=== PATIENT | female | born 1960 | race Caucasian/White ===

== ENCOUNTER 2018-10-24 19:13 | Emergency (ER) | payer BC, MEDICARE, OTHER ==
[~2018-10-24] VITALS: Ht 147.3 cm; Wt 43.4 kg
[~2018-10-24 19:13] MED LIST: CARI250T PO; CITA20TA9; ERGO500017 PO; LORA1TAB PO; NATA300V2; OMEP-110 PO; ONDA4TAB10 PO; OXYC-302; OXYC20TA42 PO
[2018-10-24] MEDS ORDERED: ONDANSETRON 2MG/ML, 2ML IVPush ONE (19:30)
[2018-10-24] MEDS ORDERED: MORPHINE SULFATE 4 MG/ML, 1ML IVPush PRN (19:30)
[2018-10-24] MEDS ORDERED: ONDANSETRON 2MG/ML, 2ML ONE (19:35)
[2018-10-24] MEDS ORDERED: MORPHINE SULFATE 4 MG/ML, 1ML ONE (19:35)
[2018-10-24 19:49] LABS: BASOPHILS # (AUTO) 0.04 x10^3/uL (0-0.1); BASOPHILS % (AUTO) 1 % (0-1); EOSINOPHILS # (AUTO) 0.19 x10^3/uL (0-0.4); EOSINOPHILS % (AUTO) 3 % (1-7); LYMPHOCYTES # (AUTO) 2.66 x10^3/uL (1-3.4); LYMPHOCYTES % (AUTO) 41 % (22-44); MD NO; MEAN CORPUSCULAR HEMOGLOBIN 27.6 pg (27.0-34.8); MEAN CORPUSCULAR VOLUME 83.6 fL (80-100); MEAN PLATELET VOLUME 8.8 fL (7.4-10.4); MONOCYTES # (AUTO) 0.55 x10^3/uL (0.2-0.8); MONOCYTES % (AUTO) 9 % (2-9); NEUTROPHILS # (AUTO) 3.04 x10^3/uL (1.8-6.8); NEUTROPHILS % (AUTO) 47 % (42-75); PLATELET COUNT 289 x10^3/uL (130-400); RED CELL DISTRIBUTION WIDTH 14.4 % (9.6-15.2)
[2018-10-24 20:00] LABS: ALANINE AMINOTRANSFERASE 91 U/L (12-78); ALBUMIN 3.5 g/dL (3.4-5.0); ANION GAP 8 mmol/L (5-15); CALCIUM 9.5 mg/dL (8.5-10.1); CHLORIDE 105 mmol/L (98-107); CREATININE 0.68 mg/dL (0.55-1.02)
[2018-10-24 20:04] LABS: ALKALINE PHOSPHATASE 152 U/L (45-117); BILIRUBIN,TOTAL 0.3 mg/dL (0.2-1.0); TOTAL PROTEIN 7.1 g/dL (6.4-8.2); TROPONIN I < 0.015 ng/mL (0.000-0.045)
[2018-10-24 20:52] LABS: CULTURE INDICATED? NO; MICROSCOPIC NOT IND
[2018-10-24 21:29] VITALS: BP 126/98
== END 2018-10-24 21:32 | disposition home or self-care (01) ==
LOC: ED 20:50
DX: R10.84 Generalized abdominal pain (principal); R19.7 Diarrhea, unspecified; B19.10 Unspecified viral hepatitis B without hepatic coma
CPT/HCPCS: 36415; 76700; 80053; 81003; 83690; 84484; 85025; 93005; 96374; 96375; 99284; J2405

== ENCOUNTER 2019-03-25 20:50 | Emergency (ER) | payer MEDICARE ==
[~2019-03-25] VITALS: Ht 147.3 cm; Wt 41.7 kg
--- NOTE | 2019-03-25 22:40 | NUR ---
FIRST CONTACT WITH PT. PT C/O ENTIRE BODY PAIN, HOT FLASHES, TINGLING, DECREASED APPETITE, DIARRHEA. HX OF MULTIPLE SCLEROSIS. HAS RECENTLY LOWERED HER "OXY" DOSE. FRIEND AT SIDE STATES WORRIED PT IS TAKING TOO MANY. INITIALLY NORCO 7.5MG THEN SWITCHED TO OXY 5/325. 5/DAY. DENIES REP COMPLAINTS. DENIES RESP COMPLAINTS. PT'S AOX4. RESPS EVEN AND UNLABORED. VIETNAMESE SPEAKING. EDMD AT BEDSIDE TO ASSESS AT THIS TIME.
[2019-03-25 23:06] LABS: BASOPHILS # (AUTO) 0.08 x10^3/uL (0-0.1); BASOPHILS % (AUTO) 1 % (0-1); EOSINOPHILS # (AUTO) 0.04 x10^3/uL (0-0.4); EOSINOPHILS % (AUTO) 0 % (1-7); LYMPHOCYTES # (AUTO) 4.25 x10^3/uL (1-3.4); LYMPHOCYTES % (AUTO) 30 % (22-44); MD NO; MEAN CORPUSCULAR HEMOGLOBIN 26.1 pg (27.0-34.8); MEAN CORPUSCULAR HGB CONC 32.4 g/dL (32.4-35.8); MEAN CORPUSCULAR VOLUME 80.7 fL (80-100); MEAN PLATELET VOLUME 7.7 fL (7.4-10.4); MONOCYTES # (AUTO) 1.11 x10^3/uL (0.2-0.8); MONOCYTES % (AUTO) 8 % (2-9); NEUTROPHILS # (AUTO) 8.51 x10^3/uL (1.8-6.8); NEUTROPHILS % (AUTO) 61 % (42-75); PLATELET COUNT 379 x10^3/uL (130-400); RED BLOOD COUNT 5.06 x10^6/uL (3.82-5.3); RED CELL DISTRIBUTION WIDTH 18.4 % (9.6-15.2)
--- NOTE | 2019-03-25 23:09 | NUR ---
PT MEDICATED PER EMAR. PT TOLERATED WELL.
[2019-03-25 23:17] LABS: ANION GAP 8 mmol/L (5-15); CALCIUM 9.2 mg/dL (8.5-10.1); CHLORIDE 111 mmol/L (98-107); CREATININE 0.69 mg/dL (0.55-1.02)
--- NOTE | 2019-03-25 23:49 | NUR ---
EDMD AT BEDSIDE TO EXPLAIN ALL RESULTS AT THIS TIME. AWAITING DC NOW.
[2019-03-26 00:44] VITALS: BP 142/82
--- NOTE | 2019-03-26 00:45 | NUR ---
PT GIVEN TO DC INSTRUCTIONS AND SCRIPTS. PT'S AOX4. RESPS EVEN AND UNLABORED. PT AMB TO DC WITH STEADY GAIT. NO ACUTE DISTRESS AT DC.
== END 2019-03-26 00:45 | disposition home or self-care (01) ==
LOC: ED 22:59
DX: F11.20 Opioid dependence, uncomplicated (principal); Z90.49 Acquired absence of other specified parts of digestive tract; R00.0 Tachycardia, unspecified; F41.1 Generalized anxiety disorder; F32.9 Major depressive disorder, single episode, unspecified
CPT/HCPCS: 36415; 80048; 83735; 84443; 85025; 93005; 99284; Q0177

== ENCOUNTER 2019-03-26 17:27 | Emergency (ER) | payer MEDICARE ==
[~2019-03-26] VITALS: Ht 147.3 cm; Wt 41.0 kg
[2019-03-26] MEDS ORDERED: HYDROmorphone 2 MG/ML, 1ML ONE ×3 (18:55)
[2019-03-26] MEDS ORDERED: SODIUM CHLORIDE FLUSH 10ML SYR IVF ONE (19:00)
[2019-03-26] MEDS ORDERED: HYDROmorphone 2 MG/ML, 1ML IVPush PRN (19:00)
[2019-03-26 19:19] LABS: CULTURE INDICATED? YES; MICROSCOPIC INDICATED
[2019-03-26 19:25] LABS: BASOPHILS # (AUTO) 0.04 x10^3/uL (0-0.1); BASOPHILS % (AUTO) 0 % (0-1); EOSINOPHILS # (AUTO) 0.04 x10^3/uL (0-0.4); EOSINOPHILS % (AUTO) 0 % (1-7); LYMPHOCYTES # (AUTO) 3.43 x10^3/uL (1-3.4); LYMPHOCYTES % (AUTO) 27 % (22-44); MD NO; MEAN CORPUSCULAR HEMOGLOBIN 27.1 pg (27.0-34.8); MEAN CORPUSCULAR HGB CONC 33.3 g/dL (32.4-35.8); MEAN CORPUSCULAR VOLUME 81.4 fL (80-100); MEAN PLATELET VOLUME 7.7 fL (7.4-10.4); MONOCYTES # (AUTO) 0.99 x10^3/uL (0.2-0.8); MONOCYTES % (AUTO) 8 % (2-9); NEUTROPHILS # (AUTO) 8.35 x10^3/uL (1.8-6.8); NEUTROPHILS % (AUTO) 65 % (42-75); PLATELET COUNT 327 x10^3/uL (130-400); RED CELL DISTRIBUTION WIDTH 18.6 % (9.6-15.2)
[2019-03-26 19:31] LABS: ALANINE AMINOTRANSFERASE 22 U/L (12-78); ALBUMIN 3.9 g/dL (3.4-5.0); ANION GAP 7 mmol/L (5-15); CALCIUM 8.7 mg/dL (8.5-10.1); CHLORIDE 110 mmol/L (98-107); CREATININE 0.71 mg/dL (0.55-1.02)
[2019-03-26 19:33] LABS: ALKALINE PHOSPHATASE 64 U/L (45-117); BILIRUBIN,TOTAL 0.3 mg/dL (0.2-1.0); TOTAL PROTEIN 6.8 g/dL (6.4-8.2)
[2019-03-26] MEDS ORDERED: CEFDINIR 300 MG CAPSULE PO ONE (20:00)
[2019-03-26 20:45] VITALS: BP 105/71
== END 2019-03-26 20:47 | disposition home or self-care (01) ==
LOC: ED 18:01
DX: N39.0 Urinary tract infection, site not specified (principal); F41.9 Anxiety disorder, unspecified; R52 Pain, unspecified
CPT/HCPCS: 36415; 80053; 81001; 85025; 87086; 96374; 99283; J1170

== ENCOUNTER 2019-05-24 19:45 | Emergency (ER) | payer MEDICARE ==
[~2019-05-24] VITALS: Ht 147.3 cm; Wt 43.5 kg
[2019-05-24] MEDS ORDERED: HYDROmorphone 1 MG/ML, 1ML VIAL ONE ×2 (20:19→22:37)
[2019-05-24] MEDS: HYDROmorphone 2 MG/ML, 1ML IVPush PRN ×2 (20:24→22:42)
[2019-05-24] MEDS ORDERED: MAALOX/HYOSCYAMINE/LIDOCAINE 45 ML BTL ONE (20:25)
[2019-05-24] MEDS ORDERED: ONDANSETRON 2MG/ML, 2ML ONE (20:25)
--- NOTE | 2019-05-24 20:28 | NUR ---
PT MEDICATED PER JAN. POC DISCUSSED. PT TO RAD NOW
[2019-05-24 20:29] LABS: BASOPHILS # (AUTO) 0.03 x10^3/uL (0-0.1); BASOPHILS % (AUTO) 1 % (0-1); EOSINOPHILS # (AUTO) 0.09 x10^3/uL (0-0.4); EOSINOPHILS % (AUTO) 1 % (1-7); LYMPHOCYTES # (AUTO) 3.21 x10^3/uL (1-3.4); LYMPHOCYTES % (AUTO) 45 % (22-44); MD NO; MEAN CORPUSCULAR HGB CONC 32.8 g/dL (32.4-35.8); MEAN CORPUSCULAR VOLUME 85.2 fL (80-100); MONOCYTES # (AUTO) 0.62 x10^3/uL (0.2-0.8); MONOCYTES % (AUTO) 9 % (2-9); NEUTROPHILS # (AUTO) 3.17 x10^3/uL (1.8-6.8); NEUTROPHILS % (AUTO) 45 % (42-75); PLATELET COUNT 331 x10^3/uL (130-400); RED BLOOD COUNT 4.69 x10^6/uL (3.82-5.3); RED CELL DISTRIBUTION WIDTH 15.5 % (9.6-15.2)
[2019-05-24] MEDS ORDERED: ONDANSETRON 2MG/ML, 2ML IVPush ONE (20:30)
[2019-05-24] MEDS ORDERED: MAALOX/HYOSCYAMINE/LIDOCAINE 45 ML BTL PO ONE (20:30)
[2019-05-24 20:41] LABS: ALANINE AMINOTRANSFERASE 52 U/L (12-78); ALBUMIN 4.2 g/dL (3.4-5.0); ANION GAP 6 mmol/L (5-15); CALCIUM 9.2 mg/dL (8.5-10.1); CHLORIDE 110 mmol/L (98-107); CREATININE 0.77 mg/dL (0.55-1.02)
[2019-05-24 20:45] LABS: ALKALINE PHOSPHATASE 101 U/L (45-117); BILIRUBIN,TOTAL 0.6 mg/dL (0.2-1.0); TOTAL PROTEIN 7.6 g/dL (6.4-8.2); TROPONIN I < 0.015 ng/mL (0.000-0.045)
--- NOTE | 2019-05-24 21:38 | NUR ---
pt up to restroom at this time for ua. pt ambulates with steady gait.
--- NOTE | 2019-05-24 21:49 | NUR ---
UA OBTIANED AND TUBED TO LAB. POC DISCUSSED. PT AND FAMILY DENY FURTHER NEEDS AT THIS TIME.
[2019-05-24 22:09] LABS: MICROSCOPIC INDICATED
[2019-05-24 22:10] LABS: CULTURE INDICATED? YES
[2019-05-24 22:42] VITALS: BP 119/74
--- NOTE | 2019-05-24 22:42 | NUR ---
PT MEDICATED PER JAN. PT TBDC
== END 2019-05-24 22:56 | disposition home or self-care (01) ==
LOC: ED 20:13
DX: K29.00 Acute gastritis without bleeding (principal)
CPT/HCPCS: 36415; 74021; 76700; 80053; 81001; 83690; 84484; 85025; 87086; 93005; 96374; 96375; 96376; 99284; J1170; J2405

== ENCOUNTER 2019-06-03 17:58 | Emergency (ER) | payer MEDICARE ==
[~2019-06-03] VITALS: Ht 147.3 cm; Wt 42.7 kg
[2019-06-03] MEDS ORDERED: ONDANSETRON ODT 8 MG PO ONE (19:30)
--- NOTE | 2019-06-03 20:06 | NUR ---
CALLED TO MEDICATE, NO ANSWER.
[2019-06-03 20:34] LABS: BASOPHILS # (AUTO) 0.04 x10^3/uL (0-0.1); BASOPHILS % (AUTO) 0 % (0-1); EOSINOPHILS # (AUTO) 0.07 x10^3/uL (0-0.4); EOSINOPHILS % (AUTO) 1 % (1-7); LYMPHOCYTES # (AUTO) 3.15 x10^3/uL (1-3.4); LYMPHOCYTES % (AUTO) 30 % (22-44); MD NO; MEAN CORPUSCULAR HEMOGLOBIN 28.2 pg (27.0-34.8); MEAN CORPUSCULAR HGB CONC 32.8 g/dL (32.4-35.8); MEAN CORPUSCULAR VOLUME 85.9 fL (80-100); MONOCYTES # (AUTO) 0.68 x10^3/uL (0.2-0.8); MONOCYTES % (AUTO) 7 % (2-9); NEUTROPHILS # (AUTO) 6.42 x10^3/uL (1.8-6.8); NEUTROPHILS % (AUTO) 62 % (42-75); PLATELET COUNT 333 x10^3/uL (130-400); RED BLOOD COUNT 4.63 x10^6/uL (3.82-5.3); RED CELL DISTRIBUTION WIDTH 14.3 % (9.6-15.2)
--- NOTE | 2019-06-03 20:37 | NUR ---
REPEAT VS DONE, PT REQUESTING PAIN MEDICATIONS, AWARE THAT WE CAN NOT GIVE ANYTHING TO HERE UNTIL SHE IS BACK IN ROOM FOR HER SAFETY AND AWARE OF WAIT PRIOR TO GETTING ROOM.
[2019-06-03 20:45] LABS: ALANINE AMINOTRANSFERASE 43 U/L (12-78); ALBUMIN 4.2 g/dL (3.4-5.0); ANION GAP 9 mmol/L (5-15); CALCIUM 9.5 mg/dL (8.5-10.1); CHLORIDE 108 mmol/L (98-107); CREATININE 0.71 mg/dL (0.55-1.02)
[2019-06-03 20:49] LABS: ALKALINE PHOSPHATASE 103 U/L (45-117); BILIRUBIN,TOTAL 0.6 mg/dL (0.2-1.0); TOTAL PROTEIN 7.8 g/dL (6.4-8.2); TROPONIN I < 0.015 ng/mL (0.000-0.045)
[2019-06-03] MEDS ORDERED: PROMETHAZINE 25 MG/ML, 1ML ONE (22:09)
[2019-06-03] MEDS ORDERED: HYDROmorphone 2 MG/ML, 1ML ONE ×2 (22:09→22:58)
[2019-06-03 22:22] LABS: TROPONIN I < 0.015 ng/mL (0.000-0.045)
[2019-06-03] MEDS ORDERED: SODIUM CHLORIDE FLUSH 10ML SYR IVF ONE (22:30)
[2019-06-03] MEDS ORDERED: HYDROmorphone 2 MG/ML, 1ML IVPush PRN (22:30)
[2019-06-03] MEDS ORDERED: PROMETHAZINE 25 MG/ML, 1ML IM ONE (22:30)
--- NOTE | 2019-06-03 22:36 | NUR ---
IV PLACED. PT MEDICATED PER JAN. CT WAS CALLED AND INFORMED PT IS READY FOR CT.
--- NOTE | 2019-06-03 22:47 | NUR ---
PT RETURNS FROM CT AT THIS TIME.
[2019-06-03] MEDS ORDERED: OMNIPAQUE 350 MG/ML, 100ML BOTTLE ONE (23:00)
[2019-06-03 23:20] LABS: MICROSCOPIC AUTO
[2019-06-03 23:23] LABS: CULTURE INDICATED? YES
[2019-06-03 23:27] VITALS: BP 150/85
--- NOTE | 2019-06-04 00:10 | NUR ---
Patient/Caregiver given discharge instructions and they have confirmed that they understand the instructions. Patient ambulatory with steady gait.
== END 2019-06-04 00:25 | disposition home or self-care (01) ==
LOC: ED 22:19
DX: N20.0 Calculus of kidney (principal); R10.84 Generalized abdominal pain; R11.2 Nausea with vomiting, unspecified; G89.29 Other chronic pain; Z90.49 Acquired absence of other specified parts of digestive tract
CPT/HCPCS: 36415; 71046; 74177; 76700; 80053; 81001; 83690; 83880; 84484; 85025; 87086; 93005; 96372; 96374; 99284; J1170; J2550; Q0162; Q9967

== ENCOUNTER 2019-06-24 17:25 | Emergency (ER) | payer SELFPAY ==
[~2019-06-24] VITALS: Ht 147.3 cm; Wt 40.6 kg
[2019-06-24 19:39] VITALS: BP 129/86
== END 2019-06-24 22:38 | disposition home or self-care (01) ==
LOC: ED 18:50
DX: N30.00 Acute cystitis without hematuria (principal); R61 Generalized hyperhidrosis; G89.29 Other chronic pain; Z90.49 Acquired absence of other specified parts of digestive tract
CPT/HCPCS: 36415; 74022; 80053; 81001; 83690; 85025; 87086; 93005; 96374; 96375; 96376; 99284; J1170; J2060; J2405

== ENCOUNTER 2019-06-25 11:01 | Emergency (ER) | payer SELFPAY ==
[~2019-06-25] VITALS: Ht 147.3 cm; Wt 40.0 kg
[2019-06-25 16:59] VITALS: BP 136/82
== END 2019-06-25 17:02 | disposition home or self-care (01) ==
LOC: ED 13:37
DX: K29.00 Acute gastritis without bleeding (principal); G89.29 Other chronic pain; E87.6 Hypokalemia; F32.9 Major depressive disorder, single episode, unspecified
CPT/HCPCS: 36415; 80053; 83690; 85025; 96372; 96374; 96375; 99283; J1200; J1630; J2270; J2765

== ENCOUNTER 2019-07-06 18:27 | Emergency (ER) | payer SELFPAY ==
[~2019-07-06] VITALS: Ht 149.9 cm; Wt 40.2 kg
[2019-07-06 21:51] VITALS: BP 137/78
== END 2019-07-06 22:20 | disposition home or self-care (01) ==
LOC: ED 20:31
DX: R10.31 Right lower quadrant pain (principal); R10.32 Left lower quadrant pain; R94.5 Abnormal results of liver function studies; F32.9 Major depressive disorder, single episode, unspecified; G89.29 Other chronic pain; Z90.49 Acquired absence of other specified parts of digestive tract
CPT/HCPCS: 36415; 74177; 80053; 81003; 83690; 85025; 96374; 96375; 99284; J2270; J2405; Q9967

== ENCOUNTER 2019-07-08 19:57 | Emergency (ER) | payer SELFPAY ==
[~2019-07-08] VITALS: Ht 149.9 cm; Wt 39.4 kg
[2019-07-08 22:45] VITALS: BP 131/97
== END 2019-07-08 23:49 | disposition home or self-care (01) ==
LOC: ED 22:53
DX: G89.29 Other chronic pain (principal); R10.13 Epigastric pain; F32.9 Major depressive disorder, single episode, unspecified; Z90.49 Acquired absence of other specified parts of digestive tract; Z98.890 Other specified postprocedural states
CPT/HCPCS: 36415; 80053; 81001; 83605; 83690; 85025; 87086; 96374; 96375; 99283; J1170; J2060; Q0162

== ENCOUNTER 2019-12-04 22:22 | Emergency (ER) | payer MEDICARE ==
[~2019-12-04] VITALS: Ht 147.3 cm; Wt 38.6 kg
[~2019-12-04 22:22] MED LIST changes: +AMITRIPTYLINE PO; +DOCU-131 PO; +GABA300C10 PO; +HYDR-3240 PO; +OMEP20TA9 PO; +ONDA4TAB7 PO; +OXYC-306 PO; +PANT40TA5 PO; +POTA20TA6 PO; +SUCR1TAB33 PO
--- NOTE | 2019-12-04 23:16 | NUR ---
THIS IS A 59 YO TURKM[place] SPEAKING ONLY PATIENT. INFRASTRUCTURE MANAGER PHONE USED, CALL STARTED AT 2250. INFRASTRUCTURE MANAGER NUMBER: [phone] THIS PATIENT IS COMING IN FOR EPIGASTRIC PAIN, N/V, X3 HOURS AFTER TAKING HOME MEDCATIONS LORAZEPAM AND AMITRIPTYLINE. PATIENT STATES SHE HAS BEEN ON THEM FOR 2-3 YEARS WITHOUT THESE SIDE EFFECTS, BUT STARTED FEELING SICK AFTER TAKING THEM TODAY. PATIENT WAS SEEN HERE 2 WEEKS AGO AND WAS DIAGNOSED WITH COLITIS, NO ABX GIVEN, AND WAS DISCHARGED. PATIENT STATES PAIN HAS GOTTEN A LITTLE BETTER SINCE THEN UNTIL TODAY. NOW PATIENT IS HAVING N/V AND "BODY STARTED FEELING NUMB". PATIENT STATES VOMIT HAS BEEN YELLOW, NO BLOOD NOTED. DENIES DIARRHEA. CALL LIGHT IN REACH, VSS, IN MILD DISTRESS DUE TO ABD PAIN. MD IN ROOM AT TIME OF INFRASTRUCTURE MANAGER USE.
[2019-12-04] MEDS ORDERED: MAALOX/HYOSCYAMINE/LIDOCAINE 45 ML BTL ONE (23:23)
[2019-12-04] MEDS ORDERED: FAMOTIDINE 20 MG TABLET ONE (23:23)
[2019-12-04] MEDS ORDERED: PROMETHAZINE 25 MG/ML, 1ML ONE (23:23)
[2019-12-04] MEDS ORDERED: FAMOTIDINE 20 MG TABLET PO ONE (23:30)
[2019-12-04] MEDS ORDERED: MAALOX/HYOSCYAMINE/LIDOCAINE 45 ML BTL PO ONE (23:30)
[2019-12-04] MEDS ORDERED: PROMETHAZINE 25 MG/ML, 1ML IM ONE (23:30)
[2019-12-04 23:32] LABS: BASOPHILS # (AUTO) 0.03 x10^3/uL (0-0.1); BASOPHILS % (AUTO) 1 % (0-1); EOSINOPHILS # (AUTO) 0.17 x10^3/uL (0-0.4); EOSINOPHILS % (AUTO) 3 % (1-7); LYMPHOCYTES # (AUTO) 2.06 x10^3/uL (1-3.4); LYMPHOCYTES % (AUTO) 37 % (22-44); MD NO; MEAN CORPUSCULAR HEMOGLOBIN 25.6 pg (27.0-34.8); MEAN CORPUSCULAR HGB CONC 32.5 g/dL (32.4-35.8); MEAN CORPUSCULAR VOLUME 78.7 fL (80-100); MEAN PLATELET VOLUME 7.8 fL (7.4-10.4); MONOCYTES % (AUTO) 9 % (2-9); NEUTROPHILS # (AUTO) 2.77 x10^3/uL (1.8-6.8); NEUTROPHILS % (AUTO) 50 % (42-75); PLATELET COUNT 360 x10^3/uL (130-400); RED BLOOD COUNT 4.77 x10^6/uL (3.82-5.3); RED CELL DISTRIBUTION WIDTH 16.8 % (9.6-15.2)
--- NOTE | 2019-12-04 23:34 | NUR ---
OIL PUMPER PHONE USED: [phone] PT REFUSED PEPCID PT REPORTS IT DOES NOT SIT WELL WITH HER. VS STABLE. CALL LIGHT IN PLACE.
[2019-12-04 23:40] LABS: ALANINE AMINOTRANSFERASE 34 U/L (12-78); ALBUMIN 3.2 g/dL (3.4-5.0); ANION GAP 7 mmol/L (5-15); CALCIUM 9.3 mg/dL (8.5-10.1); CHLORIDE 110 mmol/L (98-107)
[2019-12-04] MEDS ORDERED: AMIT50TA PO (23:40)
[2019-12-04 23:43] LABS: ALKALINE PHOSPHATASE 66 U/L (45-117); BILIRUBIN,TOTAL 0.4 mg/dL (0.2-1.0); TOTAL PROTEIN 6.9 g/dL (6.4-8.2)
--- NOTE | 2019-12-04 23:53 | NUR ---
PT REQUESTING PAIN MEDS DR DOCKERY AWARE.
[2019-12-05] MEDS ORDERED: HYDROcodone/APAP 5/325 TABLET ONE (00:23)
[2019-12-05] MEDS ORDERED: HYDROcodone/APAP 5/325 TABLET PO ONE (00:30)
[2019-12-05] MEDS ORDERED: HYDROmorphone 1 MG/ML, 1ML INJ IM ONE (00:30)
--- NOTE | 2019-12-05 00:31 | NUR ---
BREAKDOWN MILL OPERATOR PHONE USED: [phone] PT REFUSED NORCO AND THUY PT REPORTS SHE WANTS THE SHOT SHE HAD LAST TIME BUT DOES NOT KNOW THE NAME.
[2019-12-05] MEDS ORDERED: LORazepam 2 MG/ML, 1ML ONE (00:39)
--- NOTE | 2019-12-05 00:43 | NUR ---
PATIENT AMBULATED WITH STEADY GAIT TO RESTROOM
--- NOTE | 2019-12-05 00:49 | NUR ---
JAVA DEVELOPER PHONE USED: [phone] PATIENT STATES SHE WANTS THIS MEDICATION. EXPLAINED USES AND REASONING FOR MEDICATION, AND THIS WAS THE MEDICATION SHE RECEIVED LAST VISIT. PATIENT REQUESTING THIS MEDICATION THIS VISIT. PATIENT MEDICATED PER EMAR. PATIENT STATES AFTER ADMIN "I HAD A REACTION LAST TIME, IT MADE MY STOMACH UPSET." PATIENT AMBULATED TO RESTROOM WITH STEADY GAIT. STATES " I HAVE DIARRHEA". PATIENT STATING 10/10 EPIGASTRIC PAIN AT THIS TIME, REFUSING PAIN MEDICATIONS
--- NOTE | 2019-12-05 00:49 | NUR ---
Note undone in ED - 12/05/19 at 0119 by ROBERT POULTRY PROCESSOR PHONE USED: [phone] PATIENT STATES SHE WANTS THIS MEDICATION. EXPLAINED USES AND REASONING FOR MEDICATION, AND THIS WAS THE MEDICATION SHE RECEIVED LAST VISIT. PATIENT REQUESTING THIS MEDICATION THIS VISIT. PATIENT MEDICATED PER EMAR. PATIENT STATES AFTER ADMIN "I HAD A REACTION LAST TIME, IT MADE MY STOMACH UPSET." PATIENT AMBULATED TO RESTROOM WITH STEADY GAIT. STATES " I HAVE DIARRHEA". PATIENT STATING 09/08 EPIGASTRIC PAIN AT THIS TIME, REFUSING PAIN MEDICATIONS Addendum: 12/05/19 at 0059 by ROBERT Amendment undone in ED - 12/05/19 at 0119 by ROBERT MD NOTIFIED Addendum: 12/05/19 at 0102 by RADHA Amendment undone in EDM - 12/05/19 at 0119 by ROBERT CORRECTION: ELI HEREDIA IN ROOM TO MEDICATE AND USE POULTRY PROCESSOR PHONE FOR CONVERSATION WITH PATIENT.
[2019-12-05] MEDS ORDERED: LORazepam 2 MG/ML, 1ML IM PRN (01:00)
--- NOTE | 2019-12-05 01:03 | NUR ---
HELICOPTER PILOT PHONE USED: [phone] PATIENT WAS MEDICATED WITH ATIVAN, TOELRATED WELL. STILL REFUSING PAIN MEDICATIONS. PATIENT STATES "I WAS ON NORCO FOR 15 YEARS AND STOPPED 4 MONTHS AGO BECAUSE I WAS HAVING A REACTION, IT WAS MAKING ME FEEL WEIRD AND HAVE THIS NUMBNESS AND STOMACH PAINS". WHEN ASKED WHAT PATIENT GOALS WERE FOR THIS VISIT, PATIENT STATES "I DON'T KNOW BUT MY STOMACH HURTS". NOTIFIED.
[2019-12-05 01:29] VITALS: BP 124/86
--- NOTE | 2019-12-05 01:45 | NUR ---
COLLECTIVE BARGAINING SPECIALIST PHONE USED: [phone] PATIENT GIVEN DISCHARGE INSTRUCTIONS AND INSTRUCTIONS TO FOLLOW UP WITH GI DOCTOR. PATIENT STATES SHE UNDERSTANDS INFORMATION GIVEN
--- NOTE | 2019-12-05 01:57 | NUR ---
PATIENT AMBULATORY WITH STEADY GAIT TO DISCHARGE. STATES SHE WILL CALL FAMILY MEMBER FOR RIDE
== END 2019-12-05 02:01 | disposition home or self-care (01) ==
LOC: ED 22:41
DX: R10.13 Epigastric pain (principal); R11.2 Nausea with vomiting, unspecified; E87.6 Hypokalemia; K21.9 Gastro-esophageal reflux disease without esophagitis; Z90.49 Acquired absence of other specified parts of digestive tract
CPT/HCPCS: 36415; 80053; 83690; 85025; 96372; 99283; J2060; J2550

== ENCOUNTER 2019-12-13 19:34 | Emergency (ER) | payer MEDICARE ==
[~2019-12-13] VITALS: Ht 147.3 cm; Wt 37.6 kg
[~2019-12-13 19:34] MED LIST changes: +AMIT50TA PO
[2019-12-13] MEDS ORDERED: SODIUM CHLORIDE FLUSH 10ML SYR IVF ONE (20:00)
[2019-12-13 20:33] LABS: MICROSCOPIC AUTO
[2019-12-13 20:47] LABS: CULTURE INDICATED? YES
--- NOTE | 2019-12-13 21:07 | NUR ---
DIFFUSE ABD PAIN SINCE YESTERDAY. ALSO C/O VOMITNG AND DIARRHEA. DENIES ABD SURGERIES IN THE PAST.
[2019-12-13 21:15] LABS: BASOPHILS # (AUTO) 0.04 x10^3/uL (0-0.1); BASOPHILS % (AUTO) 1 % (0-1); EOSINOPHILS # (AUTO) 0.16 x10^3/uL (0-0.4); EOSINOPHILS % (AUTO) 2 % (1-7); LYMPHOCYTES # (AUTO) 2.96 x10^3/uL (1-3.4); LYMPHOCYTES % (AUTO) 37 % (22-44); MD NO; MEAN CORPUSCULAR HEMOGLOBIN 25.6 pg (27.0-34.8); MEAN CORPUSCULAR VOLUME 80.1 fL (80-100); MEAN PLATELET VOLUME 8.4 fL (7.4-10.4); MONOCYTES # (AUTO) 0.53 x10^3/uL (0.2-0.8); MONOCYTES % (AUTO) 7 % (2-9); NEUTROPHILS # (AUTO) 4.44 x10^3/uL (1.8-6.8); NEUTROPHILS % (AUTO) 55 % (42-75); PLATELET COUNT 398 x10^3/uL (130-400); RED BLOOD COUNT 5.16 x10^6/uL (3.82-5.3)
[2019-12-13 21:27] LABS: ALBUMIN 3.8 g/dL (3.4-5.0); ANION GAP 7 mmol/L (5-15); CHLORIDE 109 mmol/L (98-107)
[2019-12-13 21:30] LABS: ALANINE AMINOTRANSFERASE 40 U/L (12-78); ALKALINE PHOSPHATASE 110 U/L (45-117); BILIRUBIN,TOTAL 0.4 mg/dL (0.2-1.0); CREATININE 0.52 mg/dL (0.55-1.02); TOTAL PROTEIN 7.8 g/dL (6.4-8.2)
[2019-12-13] MEDS ORDERED: PROCHLORPERAZINE 5 MG/ML, 2ML IM ONE (21:30)
[2019-12-13] MEDS ORDERED: KETOROLAC 30 MG/1 ML IM ONE (21:30)
[2019-12-13] MEDS ORDERED: PROCHLORPERAZINE 5 MG/ML, 2ML ONE (21:39)
[2019-12-13] MEDS ORDERED: KETOROLAC 30 MG/1 ML ONE (21:39)
--- NOTE | 2019-12-13 21:44 | NUR ---
pt medicate lisa august
[2019-12-13 22:20] VITALS: BP 107/73
== END 2019-12-13 22:26 | disposition home or self-care (01) ==
LOC: ED 21:34
DX: R10.84 Generalized abdominal pain (principal); R11.2 Nausea with vomiting, unspecified; R19.7 Diarrhea, unspecified; Z98.890 Other specified postprocedural states; Z90.49 Acquired absence of other specified parts of digestive tract
CPT/HCPCS: 36415; 76700; 80053; 81001; 83690; 85025; 87086; 96372; 99284; J0780; J1885

== ENCOUNTER 2019-12-14 15:29 | Emergency (ER) | payer MEDICARE ==
[~2019-12-14] VITALS: Ht 149.9 cm; Wt 37.5 kg
[2019-12-14] MEDS ORDERED: DIPHENHYDRAMINE 50 MG/ML, 1ML ONE (15:55)
[2019-12-14] MEDS ORDERED: FAMOTIDINE 20 MG/2 ML ONE (15:55)
[2019-12-14] MEDS ORDERED: methylPREDNISolone SOD SUCC 125 MG/2 ML ONE (15:55)
[2019-12-14] MEDS ORDERED: methylPREDNISolone SOD SUCC 125 MG/2 ML IVPush ONE (16:00)
[2019-12-14] MEDS ORDERED: DIPHENHYDRAMINE 50 MG/ML, 1ML IVPush ONE (16:00)
[2019-12-14] MEDS ORDERED: FAMOTIDINE 20 MG/2 ML IVPush ONE (16:00)
--- NOTE | 2019-12-14 16:06 | NUR ---
PT TO ED FROM HOME. C/O BILAT JAW PAIN/TMJ AND INABILITY TO OPEN HER MOUTH. DENEIS ITCHING/SOB. ABLE TO OPEN MOUTH FOR EXAM BY ERMD. DENIES TOOTH PAIN. PT APPEARS V ANXIOUS. ERMD AT BEDSIDE FOR EVAL, HOLDING MEDS UNTIL CAN DISCUSS W/ MD. PT DENIES ALLERGIES, NO HX OF THIS.
[2019-12-14] MEDS ORDERED: DIAZEPAM 5 MG/ML, 2ML ONE (16:11)
[2019-12-14] MEDS ORDERED: DIAZEPAM 5 MG/ML, 2ML IV ONE (16:30)
[2019-12-14] MEDS ORDERED: SODIUM CHLORIDE FLUSH 10ML SYR IVF ONE (16:30)
[2019-12-14 16:36] LABS: BASOPHILS # (AUTO) 0.03 x10^3/uL (0-0.1); BASOPHILS % (AUTO) 0 % (0-1); EOSINOPHILS # (AUTO) 0.12 x10^3/uL (0-0.4); EOSINOPHILS % (AUTO) 2 % (1-7); LYMPHOCYTES # (AUTO) 2.82 x10^3/uL (1-3.4); LYMPHOCYTES % (AUTO) 38 % (22-44); MD NO; MEAN CORPUSCULAR HEMOGLOBIN 25.8 pg (27.0-34.8); MEAN CORPUSCULAR HGB CONC 32.2 g/dL (32.4-35.8); MEAN PLATELET VOLUME 8.4 fL (7.4-10.4); MONOCYTES # (AUTO) 0.67 x10^3/uL (0.2-0.8); MONOCYTES % (AUTO) 9 % (2-9); NEUTROPHILS # (AUTO) 3.85 x10^3/uL (1.8-6.8); NEUTROPHILS % (AUTO) 51 % (42-75); PLATELET COUNT 357 x10^3/uL (130-400); RED BLOOD COUNT 4.72 x10^6/uL (3.82-5.3); RED CELL DISTRIBUTION WIDTH 15.9 % (9.6-15.2)
--- NOTE | 2019-12-14 16:40 | NUR ---
VALIUM PER MAR PLAN FOR XR. LABS SENT.
[2019-12-14 16:45] LABS: ALANINE AMINOTRANSFERASE 33 U/L (12-78); ALBUMIN 3.4 g/dL (3.4-5.0); ANION GAP 10 mmol/L (5-15); CALCIUM 9.4 mg/dL (8.5-10.1); CHLORIDE 113 mmol/L (98-107)
[2019-12-14 16:47] LABS: ALKALINE PHOSPHATASE 101 U/L (45-117); BILIRUBIN,TOTAL 0.8 mg/dL (0.2-1.0)
[2019-12-14 17:28] VITALS: BP 118/79
== END 2019-12-14 18:04 | disposition home or self-care (01) ==
LOC: ED 17:45
DX: M62.838 Other muscle spasm (principal); Z90.49 Acquired absence of other specified parts of digestive tract; Z98.890 Other specified postprocedural states
CPT/HCPCS: 36415; 70100; 80053; 83735; 85025; 96374; 99284; J3360

== ENCOUNTER 2020-01-31 04:03 | Emergency (ER) | payer MEDICARE ==
[~2020-01-31] VITALS: Ht 147.3 cm; Wt 36.6 kg
--- NOTE | 2020-01-31 04:20 | NUR ---
This patient ambulated into the room, changed into hospital gown. RN to bedside to review patient's past medical history. Patient presents with abdominal pain. This appears to be patient's baseline as patient has presented multiple times to this emergency room and this RN personally with this condition. Awaiting assessment and orders from provider.
[2020-01-31] MEDS ORDERED: FAMOTIDINE 20 MG/2 ML IVPush ONE (05:00)
[2020-01-31] MEDS ORDERED: ONDANSETRON 2MG/ML, 2ML IVPush ONE (05:00)
[2020-01-31] MEDS ORDERED: MAALOX/HYOSCYAMINE/LIDOCAINE 45 ML BTL PO ONE (05:00)
[2020-01-31] MEDS ORDERED: SODIUM CHLORIDE FLUSH 10ML SYR IVF ONE (05:00)
--- NOTE | 2020-01-31 05:07 | NUR ---
radiology delay nurse starting IV @ 0502
[2020-01-31] MEDS ORDERED: MAALOX/HYOSCYAMINE/LIDOCAINE 45 ML BTL ONE (05:12)
[2020-01-31] MEDS ORDERED: ONDANSETRON ODT 4 MG ONE (05:12)
[2020-01-31] MEDS ORDERED: FAMOTIDINE 20 MG TABLET ONE (05:12)
[2020-01-31] MEDS ORDERED: KETOROLAC 30 MG/1 ML ONE (05:22)
[2020-01-31 05:28] LABS: BASOPHILS # (AUTO) 0.03 x10^3/uL (0-0.1); BASOPHILS % (AUTO) 0 % (0-1); EOSINOPHILS # (AUTO) 0.22 x10^3/uL (0-0.4); EOSINOPHILS % (AUTO) 2 % (1-7); LYMPHOCYTES # (AUTO) 1.71 x10^3/uL (1-3.4); LYMPHOCYTES % (AUTO) 18 % (22-44); MD NO; MEAN CORPUSCULAR HEMOGLOBIN 25.9 pg (27.0-34.8); MEAN CORPUSCULAR VOLUME 78.6 fL (80-100); MEAN PLATELET VOLUME 8.9 fL (7.4-10.4); MONOCYTES # (AUTO) 0.32 x10^3/uL (0.2-0.8); MONOCYTES % (AUTO) 3 % (2-9); NEUTROPHILS # (AUTO) 7.22 x10^3/uL (1.8-6.8); NEUTROPHILS % (AUTO) 76 % (42-75); PLATELET COUNT 267 x10^3/uL (130-400)
[2020-01-31] MEDS ORDERED: ONDANSETRON ODT 4 MG PO ONE (05:30)
[2020-01-31] MEDS ORDERED: KETOROLAC 30 MG/1 ML IM ONE (05:30)
[2020-01-31] MEDS ORDERED: FAMOTIDINE 20 MG TABLET PO ONE (05:30)
[2020-01-31 05:31] LABS: ALBUMIN 3.6 g/dL (3.4-5.0); ANION GAP 8 mmol/L (5-15); CALCIUM 8.8 mg/dL (8.5-10.1); CHLORIDE 115 mmol/L (98-107)
[2020-01-31 05:35] LABS: ALANINE AMINOTRANSFERASE 62 U/L (12-78); ALKALINE PHOSPHATASE 122 U/L (45-117); BILIRUBIN,TOTAL 0.6 mg/dL (0.2-1.0); CREATININE 0.56 mg/dL (0.55-1.02); TOTAL PROTEIN 7.3 g/dL (6.4-8.2)
--- NOTE | 2020-01-31 05:36 | NUR ---
Unable to start intravenous line. Informed provider, medications changed to po and im. RN returned, patient encouraged and provided with urine sample. security system technician followed soon behind. Patient out of room for imaging.
[2020-01-31 05:43] LABS: MICROSCOPIC AUTO
[2020-01-31 05:48] VITALS: BP 130/83
[2020-01-31 05:53] LABS: CULTURE INDICATED? YES
[2020-01-31] MEDS ORDERED: MORPHINE SULFATE 4 MG/ML, 1ML IVPush PRN (06:00)
[2020-01-31] MEDS ORDERED: METOCLOPRAMIDE 5 MG/ML, 2ML IVPush ONE (06:00)
--- NOTE | 2020-01-31 06:34 | NUR ---
RN was informed by provider orders were placed for a computed tomography scan of the patient's abdomen. flight kitchen manager able to get right external jugular access due to lack of upper extremity vascularity. RN then informed patient pain medication was ordered and would be available. Patient expressed she didn't tolerate morphine because of emesis. RN attempted to explain that antiemetics had been given and additional antiemetics. Patient instead kept pressing for "another medication" attempts to educate patient that stronger medications were inappropriate but patient just interrupted RN. RN informed provider, no new orders received. Awaiting for completion of ct scan.
[2020-01-31] MEDS ORDERED: OMNIPAQUE 350 MG/ML, 100ML BOTTLE ONE (06:47)
--- NOTE | 2020-01-31 06:51 | NUR ---
Patient back from ct, relayed to bone density technician mouth was dry. RN returned and provided patient with glycerin mouth swabs. Awaiting for CT read.
--- NOTE | 2020-01-31 07:07 | NUR ---
BEDSIDE REPORT FROM LUIS ANTONIO BENITEZ. PT RESTING IN [facility], AWAITING CT RESULTS.
== END 2020-01-31 08:01 | disposition home or self-care (01) ==
LOC: ED 06:52
DX: K29.00 Acute gastritis without bleeding (principal)
CPT/HCPCS: 36415; 74022; 74177; 80053; 81001; 83690; 85025; 87086; 96372; 99285; J1885; Q0162; Q9967

== ENCOUNTER 2020-02-21 16:06 | Emergency (ER) | payer MEDICARE ==
[~2020-02-21] VITALS: Ht 139.7 cm; Wt 38.0 kg
[2020-02-21 16:53] LABS: BASOPHILS # (AUTO) 0.04 x10^3/uL (0-0.1); BASOPHILS % (AUTO) 1 % (0-1); EOSINOPHILS # (AUTO) 0.17 x10^3/uL (0-0.4); EOSINOPHILS % (AUTO) 2 % (1-7); LYMPHOCYTES # (AUTO) 3.27 x10^3/uL (1-3.4); LYMPHOCYTES % (AUTO) 42 % (22-44); MD NO; MEAN CORPUSCULAR HEMOGLOBIN 25.6 pg (27.0-34.8); MEAN CORPUSCULAR HGB CONC 32.7 g/dL (32.4-35.8); MEAN CORPUSCULAR VOLUME 78.2 fL (80-100); MEAN PLATELET VOLUME 8.7 fL (7.4-10.4); MONOCYTES % (AUTO) 7 % (2-9); NEUTROPHILS # (AUTO) 3.74 x10^3/uL (1.8-6.8); NEUTROPHILS % (AUTO) 48 % (42-75); PLATELET COUNT 275 x10^3/uL (130-400); RED BLOOD COUNT 5.08 x10^6/uL (3.82-5.3)
[2020-02-21 17:06] LABS: ALBUMIN 3.3 g/dL (3.4-5.0); ANION GAP 5 mmol/L (5-15); CALCIUM 9.3 mg/dL (8.5-10.1); CHLORIDE 110 mmol/L (98-107)
[2020-02-21 17:14] LABS: ALANINE AMINOTRANSFERASE 71 U/L (12-78); ALKALINE PHOSPHATASE 153 U/L (45-117); BILIRUBIN,TOTAL 0.2 mg/dL (0.2-1.0); CREATININE 0.64 mg/dL (0.55-1.02)
--- NOTE | 2020-02-21 18:03 | NUR ---
pad hand: Pt ambulatory to ED room 04 from lobby in [facility] at this time.
[2020-02-21 18:41] LABS: MICROSCOPIC AUTO
[2020-02-21 18:47] LABS: CULTURE INDICATED? YES
[2020-02-21] MEDS ORDERED: MAALOX/HYOSCYAMINE/LIDOCAINE 45 ML BTL PO ONE (19:00)
[2020-02-21] MEDS ORDERED: DIPHENHYDRAMINE 50 MG/ML, 1ML IVPush ONE (19:00)
[2020-02-21] MEDS ORDERED: MORPHINE SULFATE 4 MG/ML, 1ML IVPush PRN (19:00)
[2020-02-21] MEDS ORDERED: DIPHENHYDRAMINE 50 MG/ML, 1ML ONE (19:13)
[2020-02-21] MEDS ORDERED: MAALOX/HYOSCYAMINE/LIDOCAINE 45 ML BTL ONE (19:13)
[2020-02-21] MEDS ORDERED: MORPHINE SULFATE 4 MG/ML, 1ML ONE (19:41)
--- NOTE | 2020-02-21 19:47 | NUR ---
TASK RN: PT MEDICATED PER JAN. PT TO IMAGING AT THIS TIME.
[2020-02-21] MEDS ORDERED: OMNIPAQUE 350 MG/ML, 100ML BOTTLE ONE (20:03)
[2020-02-21] MEDS ORDERED: PROMETHAZINE 25 MG/ML, 1ML ONE (20:43)
[2020-02-21 20:49] VITALS: BP 124/76
[2020-02-21] MEDS ORDERED: PROMETHAZINE 25 MG/ML, 1ML IM ONE (21:00)
== END 2020-02-21 21:35 | disposition home or self-care (01) ==
LOC: ED 20:20
DX: K29.00 Acute gastritis without bleeding (principal); G89.29 Other chronic pain; Z90.49 Acquired absence of other specified parts of digestive tract
CPT/HCPCS: 36415; 74177; 80053; 81001; 83690; 85025; 87086; 96372; 96374; 96375; 99285; J1200; J2270; J2550; Q9967

== ENCOUNTER 2020-11-22 08:41 | Emergency (ER) | payer MEDICARE ==
[~2020-11-22] VITALS: Ht 147.3 cm; Wt 45.3 kg
[~2020-11-22 08:41] MED LIST changes: -PANT40TA5 PO; +PANT40TA6 PO
[2020-11-22 09:53] LABS: BASOPHILS % (AUTO) 1 % (0-1); EOSINOPHILS % (AUTO) 3 % (1-7); LYMPHOCYTES % (AUTO) 42 % (22-44); MEAN CORPUSCULAR HEMOGLOBIN 26.1 pg (27.0-34.8); MEAN CORPUSCULAR HGB CONC 32.5 g/dL (32.4-35.8); MEAN PLATELET VOLUME 8.3 fL (7.4-10.4); MONOCYTES % (AUTO) 7 % (2-9); NEUTROPHILS % (AUTO) 48 % (42-75); PLATELET COUNT 241 x10^3/uL (130-400); RED BLOOD COUNT 5.16 x10^6/uL (3.82-5.3); RED CELL DISTRIBUTION WIDTH 16.1 % (9.6-15.2)
[2020-11-22 09:54] LABS: MD NO
[2020-11-22 10:02] LABS: ALANINE AMINOTRANSFERASE 34 U/L (12-78); ALBUMIN 3.8 g/dL (3.4-5.0); ANION GAP 5 mmol/L (5-15); CALCIUM 9.2 mg/dL (8.5-10.1); CHLORIDE 113 mmol/L (98-107)
[2020-11-22 10:05] LABS: ALKALINE PHOSPHATASE 129 U/L (45-117); BILIRUBIN,TOTAL 0.5 mg/dL (0.2-1.0); CREATININE 0.65 mg/dL (0.55-1.02); TOTAL PROTEIN 7.6 g/dL (6.4-8.2)
[2020-11-22] MEDS ORDERED: SODIUM CHLORIDE 0.9% 1,000ML IVBOLUS ONE (10:30)
[2020-11-22] MEDS ORDERED: MORPHINE SULFATE 4 MG/ML, 1ML IVPush PRN (10:30)
[2020-11-22] MEDS ORDERED: SODIUM CHLORIDE FLUSH 10ML SYR IVF ONE (10:30)
[2020-11-22] MEDS ORDERED: ONDANSETRON 2MG/ML, 2ML IVPush ONE (10:30)
[2020-11-22 10:33] LABS: MICROSCOPIC AUTO
--- NOTE | 2020-11-22 11:00 | NUR ---
22G RT FA IV STARTED BY CT
[2020-11-22] MEDS ORDERED: OMNIPAQUE 350 MG/ML, 100ML BOTTLE ONE (11:01)
[2020-11-22] MEDS ORDERED: MORPHINE SULFATE 4 MG/ML, 1ML ONE (11:31)
[2020-11-22] MEDS ORDERED: ONDANSETRON 2MG/ML, 2ML ONE (11:31)
--- NOTE | 2020-11-22 11:57 | NUR ---
PT MEDICATED PER ORDERS, RESTING, STATES SHE IS FEELING BETTER
[2020-11-22 12:01] VITALS: BP 135/79
--- NOTE | 2020-11-22 12:26 | NUR ---
Patient/Caregiver given discharge instructions and they have confirmed that they understand the instructions. Patient ambulatory with steady gait.
[2020-11-24] MEDS ORDERED: PRAM0.125 PO (23:12)
== END 2020-11-22 12:28 | disposition home or self-care (01) ==
LOC: ED 10:27
DX: A09 Infectious gastroenteritis and colitis, unspecified (principal); R10.13 Epigastric pain; R11.0 Nausea; Z90.49 Acquired absence of other specified parts of digestive tract
CPT/HCPCS: 36415; 74177; 80053; 81001; 83690; 85025; 87086; 93005; 96374; 96375; 99285; J2270; J2405; J7030; Q9967

== ENCOUNTER 2021-07-04 02:30 | Emergency (ER) | payer MEDICARE ==
[~2021-07-04] VITALS: Ht 147.3 cm; Wt 42.0 kg
[~2021-07-04 02:30] MED LIST changes: +HYDR-2214 PO; -HYDR-3240 PO; -OXYC-302; -OXYC-306 PO; +OXYC1TAB14; +OXYC1TAB17 PO; +PRAM0.125 PO
[2021-07-04] MEDS ORDERED: ONDANSETRON 2MG/ML, 2ML ONE (02:53)
[2021-07-04] MEDS ORDERED: MAALOX/HYOSCYAMINE/LIDOCAINE 45 ML BTL ONE (02:53)
[2021-07-04] MEDS ORDERED: ONDANSETRON 2MG/ML, 2ML IVPush ONE (03:00)
[2021-07-04] MEDS ORDERED: MAALOX/HYOSCYAMINE/LIDOCAINE 45 ML BTL PO ONE (03:00)
--- NOTE | 2021-07-04 03:09 | NUR ---
patient arrived to ER with complaints of stomach pain in all quadrants.
--- NOTE | 2021-07-04 03:10 | NUR ---
patient situated in bed comfortably. medications given. VSS. no other current needs at this time
[2021-07-04 03:34] LABS: BASOPHILS % (AUTO) 1 % (0-1); EOSINOPHILS % (AUTO) 3 % (1-7); LYMPHOCYTES % (AUTO) 48 % (22-44); MEAN CORPUSCULAR HEMOGLOBIN 26.9 pg (27.0-34.8); MEAN CORPUSCULAR HGB CONC 33.5 g/dL (32.4-35.8); MEAN PLATELET VOLUME 8.2 fL (7.4-10.4); MONOCYTES % (AUTO) 8 % (2-9); NEUTROPHILS % (AUTO) 41 % (42-75); PLATELET COUNT 269 x10^3/uL (130-400); RED BLOOD COUNT 4.48 x10^6/uL (3.82-5.3); RED CELL DISTRIBUTION WIDTH 14.7 % (9.6-15.2)
[2021-07-04 03:38] LABS: ALANINE AMINOTRANSFERASE 46 U/L (12-78); ALBUMIN 3.3 g/dL (3.4-5.0); ANION GAP 11 mmol/L (5-15); CALCIUM 8.6 mg/dL (8.5-10.1); CHLORIDE 114 mmol/L (98-107); CREATININE 0.55 mg/dL (0.55-1.02)
[2021-07-04 03:41] LABS: ALKALINE PHOSPHATASE 92 U/L (45-117); BILIRUBIN,TOTAL 0.4 mg/dL (0.2-1.0); TOTAL PROTEIN 6.7 g/dL (6.4-8.2)
[2021-07-04 05:28] VITALS: BP 123/75
== END 2021-07-04 05:34 | disposition home or self-care (01) ==
LOC: ED 04:30
DX: K29.00 Acute gastritis without bleeding (principal); R11.2 Nausea with vomiting, unspecified; Z90.49 Acquired absence of other specified parts of digestive tract
CPT/HCPCS: 36415; 80053; 83690; 85025; 96372; 99283; J2405

== ENCOUNTER 2021-07-24 10:56 | Emergency (ER) | payer MEDICARE ==
[~2021-07-24] VITALS: Ht 147.3 cm; Wt 43.0 kg
--- NOTE | 2021-07-24 11:45 | NUR ---
PT BIB SELF VIA POV. PER PT SHE HAS HAD DIFFUSE ABD PAIN FOR ABOUT A MONTH. PT STATES IT "HURTS WORSE IN LOWER ABD". PT STATES SHE WAS SEEN HERE EARLIER THIS MONTH AND WAS GIVEN ANTIBIOTICS FOR A STOMACH INFECTION. PT RESTING IN [facility], MONITORING IN PLACE, SWAP[place] AT THIS TIME, [place].
--- NOTE | 2021-07-24 12:08 | NUR ---
EDMD AT BEDSIDE FOR EVAL.
[2021-07-24] MEDS ORDERED: ONDANSETRON 2MG/ML, 2ML ONE (12:25)
[2021-07-24] MEDS ORDERED: DICYCLOMINE 10 MG/ML, 2ML ONE (12:25)
[2021-07-24] MEDS ORDERED: KETOROLAC 30 MG/1 ML ONE (12:25)
[2021-07-24] MEDS ORDERED: DICYCLOMINE 10 MG/ML, 2ML IM ONE (12:30)
[2021-07-24] MEDS ORDERED: ONDANSETRON 2MG/ML, 2ML IVPush ONE (12:30)
[2021-07-24] MEDS ORDERED: KETOROLAC 30 MG/1 ML IVPush ONE (12:30)
[2021-07-24] MEDS ORDERED: SODIUM CHLORIDE FLUSH 10ML SYR IVF ONE (12:30)
--- NOTE | 2021-07-24 12:53 | NUR ---
SACHA RN: PIV STARTED, MEDICATED PER MAR, EXPLAINED PLAN OF CARE, WARM BLANKETS GIVEN, CALL LIGHT IN PLACE AND BED RAILS UP X 2
[2021-07-24 12:58] LABS: BASOPHILS % (AUTO) 1 % (0-1); EOSINOPHILS % (AUTO) 2 % (1-7); LYMPHOCYTES % (AUTO) 41 % (22-44); MEAN CORPUSCULAR HEMOGLOBIN 26.8 pg (27.0-34.8); MEAN CORPUSCULAR HGB CONC 32.4 g/dL (32.4-35.8); MEAN PLATELET VOLUME 8.3 fL (7.4-10.4); MONOCYTES % (AUTO) 6 % (2-9); NEUTROPHILS % (AUTO) 50 % (42-75); PLATELET COUNT 236 x10^3/uL (130-400); RED BLOOD COUNT 5.13 x10^6/uL (3.82-5.3); RED CELL DISTRIBUTION WIDTH 14.3 % (9.6-15.2)
[2021-07-24 13:08] LABS: ALBUMIN 3.9 g/dL (3.4-5.0); ANION GAP 6 mmol/L (5-15); CALCIUM 9.2 mg/dL (8.5-10.1); CHLORIDE 111 mmol/L (98-107)
[2021-07-24 13:13] LABS: ALANINE AMINOTRANSFERASE 30 U/L (12-78); ALKALINE PHOSPHATASE 90 U/L (45-117); BILIRUBIN,TOTAL 0.8 mg/dL (0.2-1.0); CREATININE 0.68 mg/dL (0.55-1.02); TOTAL PROTEIN 7.9 g/dL (6.4-8.2)
[2021-07-24 13:20] LABS: MICROSCOPIC NOT IND
--- NOTE | 2021-07-24 13:26 | NUR ---
Astrid tate in [facility] - 07/24/21 at 1327 by ETHAN REPORT FROM MARILEE FERRO
--- NOTE | 2021-07-24 13:27 | NUR ---
REPORT FROM MARILEE BENITEZ.
[2021-07-24 14:03] VITALS: BP 145/75
--- NOTE | 2021-07-24 14:03 | NUR ---
IVF INFUSING, ASKING FOR PAIN MEDS, TBDC.
== END 2021-07-24 14:57 | disposition home or self-care (01) ==
LOC: ED 11:02
DX: R10.84 Generalized abdominal pain (principal); R11.0 Nausea; Z90.49 Acquired absence of other specified parts of digestive tract
CPT/HCPCS: 36415; 74022; 80053; 81003; 83690; 85025; 96372; 96374; 96375; 99284; J0500; J1885; J2405